=== PATIENT | female | born 1990 | race Caucasian/White ===

== ENCOUNTER 2018-08-14 07:59 | Day surgery (SDC) | payer BC ==
[2018-08-14] MEDS ORDERED: Lactated Ringers 1,000 ML IV SCH (08:00)
--- NOTE | 2018-08-14 08:50 | PCM.PREANE ---
Preanesthetic Assessment - Anesthesia/Transfusion/Family Hx Anesthesia History: Prior Anesthesia Without Reaction Other Type of Anesthesia Reaction Comment: Spinal rough in [place] tough getting in/false readings child born/general Family History of Anesthesia Reaction: No Transfusion History: No Prior Transfusion(s) Intubation History: Unknown - Review of Systems General: No Symptoms Pulmonary: No Symptoms Cardiovascular: No Symptoms Gastrointestinal: No Symptoms Neurological: No Symptoms Other: Reports: None - Physical Assessment Height: 5 ft 5 in Weight: 73.482 kg ASA Class: 1 Mental Status: Alert & Oriented x3 Airway Class: Mallampati = 1 Dentition: Reports: Normal Dentition (crown x1 left lower (back)) ROM/Head Extension: Full Lungs: Clear to Auscultation, Normal Respiratory Effort Cardiovascular: Regular Rate, Regular Rhythm - Allergies Allergies/Adverse Reactions: Allergies Allergy/AdvReac Type Severity Reaction Status Date / Time No Known Allergies Allergy Verified 08/10/18 07:38 - Blood Blood Available: No - Anesthesia Plan Pre-Op Medication Ordered: None - Acknowledgements Anesthesia Type Planned: General Anesthesia Pt an Appropriate Candidate for the Planned Anesthesia: Yes Alternatives and Risks of Anesthesia Discussed w Pt/Guardian: Yes Pt/Guardian Understands and Agrees with Anesthesia Plan: Yes PreAnesthesia Questionnaire HEENT History: Reports: None Cardiovascular History: Reports: None Respiratory History: Reports: None Gastrointestinal History: Reports: Irritable Bowel Syndrome Genitourinary History: Reports: None SMALL ENGINE SPECIALIST History: Reports: Dysfunctional Uterine Bleeding, Musculoskeletal History: Reports: Arthritis Neurological History: Reports: None Psychiatric History: Reports: None Endocrine/Metabolic History: Reports: None Hematologic History: Reports: None Immunologic History: Reports: None Oncologic (Cancer) History: Reports: None Dermatologic History: Reports: None - Past Surgical History Head Surgeries/Procedures: Reports: None HEENT Surgical History: Reports: LASIK Cardiovascular Surgical History: Reports: None Respiratory Surgical History: Reports: None GI Surgical History: Reports: None Female Surgical History: Reports: Section (x2) Endocrine Surgical History: Reports: None Neurological Surgical History: Reports: None Musculoskeletal Surgical History: Reports: None Oncologic Surgical History: Reports: None Dermatological Surgical History: Reports: None - SUBSTANCE USE Smoking Status *Q: Former Smoker (quit 2010) Recreational Drug Use History: No - HOME MEDS Home Medications: Home Meds Ascorbic Acid [Vitamin C] 1 tab PO DAILY 08/10/18 [History] Naproxen Sodium [Aleve] 1 tab PO ASDIRECTED PRN 08/10/18 [History] - CURRENT (IN HOUSE) MEDS Current Meds: Current Medications Lactated Ringer's (Ringers, Lactated) 1,000 mls @ 125 mls/hr IV ASDIRECTED CRISTIN
[2018-08-14] MEDS ORDERED: Bupivacaine 0.25% 10 ML SDV ONE (08:57)
[2018-08-14] MEDS ORDERED: Sodium Chloride 0.9% 10 ML Syringe FLUSH PRN (09:31)
[2018-08-14] MEDS ORDERED: Sodium Chloride 0.9% 10 ML SDV IV PRN (09:31)
[2018-08-14] MEDS ORDERED: Sodium Chloride 0.9% 2.5 ML Syringe FLUSH PRN (09:31)
[2018-08-14] MEDS ORDERED: Lidocaine 2% 5 ML SDV ONE (10:06)
[2018-08-14] MEDS ORDERED: Rocuronium 100 MG/10 ML Syringe ONE (10:06)
[2018-08-14] MEDS ORDERED: Propofol 200 MG/20 ML SDV ONE (10:06)
[2018-08-14] MEDS ORDERED: fentaNYL 250 MCG/5 ML SDV ONE (10:07)
[2018-08-14] MEDS ORDERED: Midazolam 1 MG/ML 2 ML SDV ONE (10:07)
[2018-08-14] MEDS ORDERED: Dexamethasone 4 MG/ML 5 ML MDV ONE (10:59)
[2018-08-14] MEDS ORDERED: Glycopyrrolate 0.2 MG/ML SDV ONE ×3 (10:59→12:13)
[2018-08-14] MEDS ORDERED: Ondansetron 4 MG/2 ML SDV ONE (10:59)
[2018-08-14] MEDS ORDERED: Atropine 0.1 MG/ML 10 ML Syringe IVPUSH PRN ×2 (11:04)
[2018-08-14] MEDS ORDERED: Albuterol 0.083% 2.5 MG/3 ML Neb Soln NEB PRN (11:04)
[2018-08-14] MEDS ORDERED: 50% Dextrose in Water 50 ML Syringe IVPUSH PRN (11:04)
[2018-08-14] MEDS ORDERED: EPINEPHrine 1:10,000 1 MG/10 ML Syringe IVPUSH PRN (11:04)
[2018-08-14] MEDS ORDERED: Naloxone 0.4 MG/ML Syringe IVPUSH PRN (11:04)
[2018-08-14] MEDS ORDERED: Neostigmine Methylsulfate 1 MG/ML 5 ML Syringe ONE (12:12)
[2018-08-14] MEDS: fentaNYL 100 MCG/2 ML SDV IVPUSH PRN ×4 (13:05→15:08)
[2018-08-14] MEDS ORDERED: Ketorolac 30 MG/ML SDV IVPUSH ONE (13:12)
[2018-08-14] MEDS ORDERED: Ketorolac 30 MG/ML SDV ONE (13:13)
--- NOTE | 2018-08-14 13:20 | PCM.OPNOTE ---
- General Post-Op/Procedure Note Date of Surgery/Procedure: 08/14/18 Operative Procedure(s): Operative laparoscopy with Biopsy and Ablation of endometriotic deposits Findings: Few endometriotic deposits , noted in the right and left ovarian fossa, on the peritoneum in the cul-de- sac , uterosacrals Normal endometrium noted in hysteroscopy Pre Op Diagnosis: Abnormal Uterine Bleeding. Chronic pelvic pain Post-Op Diagnosis: AUB and Endometriosis Anesthesia Technique: General ET Tube Primary Surgeon: Darnell Lawrence Pathology: Endometrial curretting Pelvic peritoneum Fluid Replacement, Intraop: 2,100 Output, Urine Amount: 300 EBL in mLs: 20 Complications: None Condition: Good Free Text/Narrative:: Intake & Output 08/13/18 08/14/18 08/14/18 22:59 06:59 14:59 Output Total 300 Balance -300
--- NOTE | 2018-08-14 13:27 | PCM.POSTAN ---
POST ANESTHESIA ASSESSMENT - MENTAL STATUS Mental Status: Alert, Oriented - RESPIRATORY Respiratory Status: Respiratory Rate WNL, Airway Patent, O2 Saturation Stable - CARDIOVASCULAR CV Status: Pulse Rate WNL, Blood Pressure Stable - GASTROINTESTINAL GI Status: No Symptoms - PAIN Pain Score: 3 - POST OP HYDRATION Hydration Status: Adequate & Stable - OBSERVATIONS Free Text/Narrative:: No anesthesia problems
[2018-08-14] MEDS ORDERED: Ondansetron 4 MG/2 ML SDV IVPUSH PRN (14:25)
[2018-08-14 17:07] VITALS: BP 110/77
--- NOTE | 2018-08-15 03:03 | OR ---
SURGEON: BELKIS OSULLIVAN DATE OF PROCEDURE:08/14/2018 PREOPERATIVE DIAGNOSES: A 28-year-old para 2 with abnormal uterine bleeding and chronic pelvic pain. POSTOPERATIVE DIAGNOSES: A 28-year-old para 2 with abnormal uterine bleeding and chronic pelvic pain. PROCEDURE: Operative laparoscopy with ablation of endometriotic deposit, Hysteroscopy, Dand C, and Endometrial ablation with Mary. IV FLUIDS: 2100. ESTIMATED BLOOD LOSS: 20. URINE OUTPUT: 300 before the procedure. Pathology: endometrial biopsy and pelvic side wall biopsy NOTES AND FINDINGS: Normal-sized anteverted uterus. The laparoscopy showed endometriotic deposit around the ovarian fossa bilaterally and also some on the uterosacral. Biopsy was obtained in the left pelvic sidewall. Endometrium not fully visualized due to excessive blood in uterine cavity due to menstruation , however it appeared grossly normal. Endometrial ablation done for 106 seconds instead of 120 seconds due to machine error. DESCRIPTION OF PROCEDURE: The patient was taken to the operating room, where general anesthesia was performed for without difficulty. She was prepared and draped in the dorsal lithotomy position. The cervix was then exposed. A uterine manipulator was placed. The depth of the cervix was measured, was 2.5 cm. Uterus was measured, was 9.5 cm, retroverted. Then, the attention was turned to the abdomen. An umbilical incision was made, and abdomen was entered via direct entry. Pneumoperitoneum was obtained to 15 mmHg. A left Lower quadrant incision was made 2 fingerbreadths superior and medial to the anterior superior iliac spine. Another incision was also made 2 cm above the suprapubic bone. The laparoscopy revealed endometriotic deposit. The biopsy forceps was used to obtain peritoneum from the right pelvic sidewall, which was sent for pathology. The ureters were noted to be peristaltic before and after the biopsy.Endometriotic deposits are ablated with the harmonic roller ball in regions away from the ureter. Attention was then paid to the perineum. The hysteroscope was inserted into the endometrium was minimal, and the vision was not so clear because of the period. The D and C was then performed. An ablation was done. The Mary machine was inserted into the cervix and integrity was confirmed. The cycle of Mary was started. However, 14 seconds before the procedure ended, the machine had an error message. As a result, the procedure was not continued because only 14 seconds left. The patient tolerated the procedure well. All instrument and pad count were correct x2. AURA BEGUM /[id number] MTDD
== END 2018-08-14 16:15 | disposition home or self-care (01) ==
LOC: MW.SDS 07:59
PROVIDERS: ATTEND Obstetrics & Gynecology
DX: N80.0 Endometriosis of uterus (principal); N80.1 Endometriosis of ovary; N80.3 Endometriosis of pelvic peritoneum; N94.89 Other specified conditions associated with female genital organs and menstrual cycle; G89.29 Other chronic pain; R10.2 Pelvic and perineal pain; M19.90 Unspecified osteoarthritis, unspecified site; Z87.891 Personal history of nicotine dependence; Z79.899 Other long term (current) drug therapy
CPT/HCPCS: 36415; 84703; 85027; J1100; J1885; J2001; J2250; J2405; J2704; J3010; J3490; J7120